=== PATIENT | male | born 1990 | race Caucasian/White ===

== ENCOUNTER 2017-06-27 15:02 | Emergency (ER) | payer OTHER ==
[~2017-06-27] VITALS: Ht 165.1 cm; Wt 108.4 kg
[2017-06-27 16:06] LABS: BASOPHIL % 0.7 % (0-2); PLATELET COUNT 232 x10^3mcL (130-400)
[2017-06-27 16:09] LABS: AMPHETAMINE QUAL UR NONE DETECTED (NEG <=1000)
[2017-06-27 16:10] LABS: CALCIUM 8.9 mg/dL (8.5-10.1); CARBON DIOXIDE 26.1 mmol/L (21-32); CHLORIDE SERUM 101 mmol/L (98-107); GFR1 > 60 mL/min; GLUCOSE SERUM 102 mg/dL (74-106); POTASSIUM SERUM 3.3 mmol/L (3.5-5.1); SODIUM SERUM 136 mmol/L (136-145)
[2017-06-27 16:15] LABS: ALBUMIN 3.9 g/dL (3.4-5.0); ALKALINE PHOSPHATASE 57 U/L (46-116); ALT/SGPT 39 U/L (16-63); AST/SGOT 15 U/L (15-37); BILIRUBIN TOTAL 1.71 mg/dL (0.20-1.00)
[2017-06-27 16:16] LABS: TOTAL PROTEIN, SERUM 8.3 g/dL (6.4-8.2)
[2017-06-27 16:27] LABS: CK-MB 0.6 ng/mL (0-3.6)
[2017-06-27 17:23] VITALS: BP 132/76
== END 2017-06-27 17:40 | disposition home or self-care (01) ==
LOC: ED 15:02
PROVIDERS: Emergency Medicine
DX: R07.89 Other chest pain (principal); R06.02 Shortness of breath; I10 Essential (primary) hypertension
CPT/HCPCS: 36415; 36600; 83880; J7613; Q0092